=== PATIENT | female | born 1955 | race African-American/Black ===

== ENCOUNTER 2016-07-21 13:31 | Emergency (ER) | payer BC ==
[~2016-07-21] VITALS: Ht 162.6 cm; Wt 72.1 kg
[2016-07-21 13:45] VITALS: BP 150/86
--- NOTE | 2016-07-21 13:51 | NUR ---
PATIENT AMBULATED TO BED 4 AT THIS TIME.
--- NOTE | 2016-07-21 13:55 | NUR ---
60F BIB SELF C/O FATIGUE AND LIGHTHEADEDNESS AT WORK TODAY; PT STATED FELT NAUSEAS, COLD, AND WEAK WHILE AT WORK, BUT AMBULATORY; A&OX4, PERRL, DENIES BLURRY VISION, LIGHTHEADEDNESS, OR DIZZINESS AT THIS TIME; PT DENIES N/V/D AT THIS TIME; BL LUNG SOUNDS CLEAR, RR EVEN/UNLABORED, SKIN IS WARM/DRY/INTACT AT THIS TIME; PT RESTING IN BED W/ HOB ELEVATED AND IN LOWEST POSITION; POSITIONED FOR COMFORT; ER MD MADE AWARE OF STATUS. WILL CONTINUE TO MONITOR.
--- NOTE | 2016-07-21 14:00 | NUR ---
X RAY AT BEDSIDE
--- NOTE | 2016-07-21 14:00 | NUR ---
LAB AT BEDSIDE
[2016-07-21] MEDS ORDERED: KETOROLAC 60 MG/2 ML VIAL IM ONE (14:10)
[2016-07-21 14:47] VITALS: BP 148/77
--- NOTE | 2016-07-21 14:47 | NUR ---
Patient discharged with v/s stable. Written and verbal after care instructions given and explained. Patient alert, oriented and verbalized understanding of instructions. Ambulatory with steady gait. All questions addressed prior to discharge. ID band removed. Patient advised to follow up with PMD. Rx of CIPRO 500MG & MOTRIN 800MG given. Patient educated on indication of medication including possible reaction and side effects. Opportunity to ask questions provided and answered.
== END 2016-07-21 14:47 | disposition home or self-care (01) ==
LOC: MED 13:35
DX: N39.0 Urinary tract infection, site not specified (principal); F17.200 Nicotine dependence, unspecified, uncomplicated; Z88.0 Allergy status to penicillin
CPT/HCPCS: 36415; 80053; 81001; 85025; 85610; 85730; 87086; 87186; 96372; 99284; J1885